=== PATIENT | male | born 2000 | race African-American/Black ===

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

== ENCOUNTER 2021-03-04 09:43 | Emergency (ER) | payer OTHER, SELFPAY ==
[2021-03-09 21:48] LABS: Chlam.trachomatis by PCR,Urine Inconclusive (NotDetected)
== END 2021-03-04 10:10 | disposition home or self-care (01) ==
LOC: ERS 09:43
DX: R36.9 Urethral discharge, unspecified (principal); J45.909 Unspecified asthma, uncomplicated; F17.210 Nicotine dependence, cigarettes, uncomplicated
CPT/HCPCS: 87491; 87591; 99283

== ENCOUNTER 2021-03-05 13:48 | Emergency (ER) | payer OTHER, SELFPAY ==
[2021-03-05 14:11] LABS: Bacteria/HPF None Seen HPF (None Seen); Bilirubin Negative (Negative); Blood, Urine 1+ (Negative); Clarity Extra Turbid (Clear); Glucose, Urine (Dipstick) Normal (Negative); Ketone, Urine Negative (Negative); Leukocyte 500 Leu/uL (Negative); Nitrite Negative (Negative); Protein, Urine (Dipstick) 30 mg/dL (Neg-Trace); RBC/HPF 21-50 HPF (0-3); Specific Gravity, Urine 1.023 (1.002-1.036); Squamous Epithelial None Seen HPF (0-3); WBC/HPF Greater than 50 HPF (0-3); pH, Urine 6.5 (5.0-9.0)
[2021-03-05] MEDS ORDERED: cefTRIAXone\\ROCEPHIN 500 MG VIAL ONE (14:29)
[2021-03-05] MEDS ORDERED: Azithromycin 500 MG VIAL ONE (14:29)
[2021-03-05] MEDS ORDERED: Lidocaine 1% (PF) 30 ML VIAL ONE (14:29)
[2021-03-05] MEDS ORDERED: Azithromycin 250 MG TAB ONE (14:29)
== END 2021-03-05 15:08 | disposition home or self-care (01) ==
LOC: ERS 13:48
DX: N34.2 Other urethritis (principal); J45.909 Unspecified asthma, uncomplicated; F17.210 Nicotine dependence, cigarettes, uncomplicated
CPT/HCPCS: 81003; 81015; 87086; 96372; 99283; J0456; J0696; J2001

== ENCOUNTER 2022-05-06 12:57 | Emergency (ER) | payer SELFPAY ==
[2022-05-06] MEDS ORDERED: Ketorolac Tromethamine 30 MG/ML VIAL ONE (13:39)
[2022-05-06] MEDS ORDERED: Diazepam 10 MG/2 ML SYRINGE ONE (13:39)
== END 2022-05-06 14:53 | disposition home or self-care (01) ==
LOC: ERS 12:57
DX: M62.830 Muscle spasm of back (principal); M54.50 Low back pain, unspecified; G89.29 Other chronic pain; J11.1 Influenza due to unidentified influenza virus with other respiratory manifestations; J45.909 Unspecified asthma, uncomplicated; F17.210 Nicotine dependence, cigarettes, uncomplicated
CPT/HCPCS: 87804; 96372; 99283; J1885; J3360

== ENCOUNTER 2022-07-09 17:59 | Emergency (ER) | payer SELFPAY ==
[2022-07-09] MEDS ORDERED: Ketorolac Tromethamine 30 MG/ML VIAL ONE (18:16)
[2022-07-10] MEDS ORDERED: predniSONE 20 MG TAB ONE (21:51)
== END 2022-07-09 18:36 | disposition home or self-care (01) ==
LOC: ERS 17:59
DX: M54.50 Low back pain, unspecified (principal); F17.210 Nicotine dependence, cigarettes, uncomplicated
CPT/HCPCS: 96372; 99283; J1885

== ENCOUNTER 2022-08-11 16:33 | Emergency (ER) | payer SELFPAY | END 2022-08-11 17:22 | disposition home or self-care (01) | LOC: ERS 16:33 | DX: L72.3 Sebaceous cyst (principal); L25.9 Unspecified contact dermatitis, unspecified cause; F17.210 Nicotine dependence, cigarettes, uncomplicated | CPT/HCPCS: 99283 ==

== ENCOUNTER 2022-08-14 15:19 | Emergency (ER) | payer SELFPAY ==
[2022-08-14] MEDS ORDERED: HYDROcodone/Acetaminophen 5/325 mg Tablet ONE (17:12)
== END 2022-08-14 18:49 | disposition home or self-care (01) ==
LOC: ERS 15:19
DX: M79.601 Pain in right arm (principal); F17.210 Nicotine dependence, cigarettes, uncomplicated

== ENCOUNTER 2023-02-08 19:33 | Emergency (ER) | payer SELFPAY | END 2023-02-08 23:59 | disposition home or self-care (01) | LOC: ERS 19:33 | DX: B35.3 Tinea pedis (principal); J45.909 Unspecified asthma, uncomplicated; F17.210 Nicotine dependence, cigarettes, uncomplicated | CPT/HCPCS: 99283 ==

== ENCOUNTER 2023-07-03 11:59 | Emergency (ER) | payer SELFPAY | END 2023-07-03 13:00 | disposition home or self-care (01) | LOC: ERS 11:59 | DX: S60.511A Abrasion of right hand, initial encounter (principal); G89.29 Other chronic pain; M54.50 Low back pain, unspecified; F17.210 Nicotine dependence, cigarettes, uncomplicated; X58.XXXA Exposure to other specified factors, initial encounter | CPT/HCPCS: 99283 ==

== ENCOUNTER 2024-05-26 21:32 | Emergency (ER) | payer OTHER, SELFPAY ==
[2024-05-26] MEDS ORDERED: Ondansetron PF 4 MG/2 ML Vial ONE (22:38)
[2024-05-26] MEDS ORDERED: Ketorolac Tromethamine 30 MG (1 mL) VIAL ONE (22:38)
[2024-05-26 22:48] LABS: #Basophils 0.04 10x3/uL (0.0-0.2); %Basophils 0.4 % (0.0-1.0); %Eosinophils 4.1 % (0.0-10.0); %Lymphocytes 32.4 % (21.0-51.0); %Monocytes 5.5 % (0.0-10.0); %Neutrophils 57.5 % (42.0-75.0); Hematocrit 40.5 % (42.0-52.0); Hemoglobin 14.6 g/dL (14.0-18.0); Mean Platelet Volume 8.8 fL (7.4-10.4); Platelet Count 269 10x3/uL (130-400); RBC Distribution Width 13.3 % (11.5-14.5); Red Blood Cell (RBC) Count 4.71 mill/uL (4.70-6.10)
[2024-05-26 23:05] LABS: ALT (SGPT) 19 U/L (8-55); AST (SGOT) 19 U/L (5-34); Albumin 4.3 g/dL (3.5-5.0); Alkaline Phosphatase 81 U/L (40-110); Anion Gap 16 mmol/L (10-20); BUN (Urea Nitrogen) 7 mg/dL (8.9-20.6); Bilirubin, Total 0.3 mg/dL (0.2-1.2); Calc. Creatinine Clearance 0 mL/min (70-130); Calcium 9.5 mg/dL (7.8-10.44); Carbon Dioxide 25 mmol/L (22-29); Chloride 103 mmol/L (98-107); Estimated GFR 96; Globulin 3.5 g/dL (2.4-3.5); Glucose 84 mg/dL (70-105); Potassium 3.3 mmol/L (3.5-5.1); Protein, Total 7.8 g/dL (6.0-8.3); Sodium 141 mmol/L (136-145)
[2024-05-27 01:10] LABS: Bacteria/HPF None Seen HPF (None Seen); Bilirubin Negative (Negative); Blood, Urine 2+ (Negative); CAUTI Indications for Culture Pelvic or flank pain; Clarity Turbid (Clear); Glucose, Urine (Dipstick) Normal (Negative); Ketone, Urine 10 mg/dL (Negative); Leukocyte 500 Leu/uL (Negative); Nitrite Negative (Negative); Protein, Urine (Dipstick) 70 mg/dL (Neg-Trace); Specific Gravity, Urine 1.029 (1.002-1.036); Squamous Epithelial 0-3 HPF (0-3); Urobilinogen Normal mg/dL (Less than 2); WBC/HPF Greater than 50 HPF (0-3)
[2024-05-27 01:11] LABS: Urine Culture Reflex Yes Yes
[2024-05-27] MEDS ORDERED: cefTRIAXone (ROCEPHIN) 1 GM VIAL ONE (01:30)
[2024-05-27 14:12] LABS: Chlam.trachomatis by PCR,Urine Not Detected (NotDetected); GC N.gonorrhoeae PCR,UrineVOID DETECTED (NotDetected)
== END 2024-05-27 01:41 | disposition home or self-care (01) ==
LOC: ERS 21:32
DX: N39.0 Urinary tract infection, site not specified (principal); R31.9 Hematuria, unspecified; F17.210 Nicotine dependence, cigarettes, uncomplicated
CPT/HCPCS: 36415; 74176; 80053; 81001; 83605; 85025; 87086; 87491; 87591; 96374; 96375; J0696; J1885; J2405